=== PATIENT | male | born 1975 | race African-American/Black ===

== ENCOUNTER 2016-11-25 11:17 | Emergency (ER) | payer OTHER ==
--- NOTE | ~2016-11-25 | CR173 ---
[facility] A Service of [facility] & [facility] RADIOLOGY TEXT RESULTS PATIENT: TANI OHARA LOCATION: SED : 73 UNIT #: [id number] AGE: [address]: Jerrica Shepard APRN SEX: M ORDER DR: [id number] [place] [id number] E MR#: [id number] Acc #: [id number] NAME: TANI OHARA : 1975 SEX: M STUDY DATE/TIME: 11/25/2016 11:37 UNIT: SED ROOM: STUDY DESCRIPTION: CR Knee 3 Views Rt Attending Physician: Jerrica Shepard A.P.R.N. Ordering Physician: Jerrica Shepard A.P.R.N. Primary Care Physician: No Primary Care Physician MEDICAL IMAGING REPORT This report is preliminary unless electronic signature is present. EXAM Right knee series, 11/25/16 HISTORY Pain from hit. Right knee pain for 1 week. Pain and minimal swelling. Hit on metal rail one week ago. FINDINGS AP, lateral and sunrise views of the left knee are presented. No traumatic fracture or malalignment. Mild narrowing lateral aspect of the patellofemoral joint space. Mild narrowing medial joint space compartment. No joint effusion. No soft tissue defect, subcutaneous air or radiodense foreign body. Dictated by... Roger Rivera M.D. THIS IS AN ELECTRONICALLY VERIFIED REPORT Roger Rivera M.D. at 11/29/2016 4:56 PM Miguel A TD: 11/25/2016 14:49 JOB #: [id number] MEDICAL IMAGING REPORT Page 1 of 1
[~2016-11-25 11:17] MED LIST: ASPIRIN EC81 M1 PO; DICLOFENAC PO; FLEXERIL10 MG PO
[2016-11-25] MEDS ORDERED: IBUPROFEN (11:31)
== END 2016-11-25 13:08 | disposition home or self-care (01) ==
LOC: SED 11:17
DX: S83.91XA Sprain of unspecified site of right knee, initial encounter (principal); X50.1XXA Overexertion from prolonged static or awkward postures, initial encounter; Y92.69 Other specified industrial and construction area as the place of occurrence of the external cause
CPT/HCPCS: 73562; 99283

== ENCOUNTER 2017-01-05 11:25 | Emergency (ER) | payer OTHER ==
--- NOTE | ~2017-01-05 | CR72 ---
[facility]. [facility] A Service of [facility] & [facility] RADIOLOGY TEXT RESULTS PATIENT: TANI OHARA LOCATION: SED : 73 UNIT #: [id number] AGE: [address]: Gerson Salas MD SEX: M ORDER DR: [id number] [place] [id number] E MR#: [id number] Acc #: [id number] NAME: TANI OHARA : 1975 SEX: M STUDY DATE/TIME: 01/05/2017 UNIT: SED ROOM: STUDY DESCRIPTION: CR Chest Single View Portable Attending Physician: Gerson Salas M.D. Ordering Physician: Gerson Salas M.D. Primary Care Physician: No Primary Care Physician MEDICAL IMAGING REPORT This report is preliminary unless electronic signature is present. EXAM Chest portable 01/05/2017 1154 hours HISTORY 41-year-old man complaining of anterior chest pain since last night. COMPARISON 03/12/2015 FINDINGS Portable upright chest demonstrates heart size within normal limits. Mediastinal, hilar, and aortic contours are normal. Lung volumes are improved from the prior study. The lungs are clear, and there are no effusions. IMPRESSION No acute cardiopulmonary findings. Dictated by... Kenia Porras M.D. THIS IS AN ELECTRONICALLY VERIFIED REPORT Kenia Porras M.D. at 01/05/2017 2:34 PM CHRISTINE/petros TD: 01/05/2017 13:57 JOB #: [id number] MEDICAL IMAGING REPORT Page 1 of 1
--- NOTE | ~2017-01-05 | EKG ---
PATIENT: TANI OHARA UNIT #: [id number] Ventricular Rate: 92 BPM Atrial Rate: 92 BPM P-R Interval: 132 ms QRS Duration: 92 ms Q-T Interval: 346 ms QTC Calculation(Bezet): 427 ms P Turner: 66 degrees Calculated R Turner: 16 degrees Calculated T Turner: 20 degrees Diagnosis Line: Normal sinus rhythm Diagnosis Line: Minimal voltage criteria for LVH, may be normal Diagnosis Line: variant Diagnosis Line: Borderline ECG Diagnosis Line: When compared with ECG of 12-MAR-2015 09:50, Diagnosis Line: No significant change was found Diagnosis Line: Confirmed by PEDRO PRESSLEY MD ([id number]) on Diagnosis Line: 01/06/2017 5:29:12 PM INTERPRETING MD: WENDIE CRUZ
[~2017-01-05 11:25] MED LIST changes: +IBUPROFEN
[2017-01-05] MEDS ORDERED: NORVASC PO (11:30)
[2017-01-05] MEDS ORDERED: HYDROCHLOROTHIA25 MG PO (11:30)
[2017-01-05 11:59] LABS: BASOPHIL% 0.5 % (0-2.5); EOSINOPHIL% 0.4 % (0.0-7.0); HEMOGLOBIN 14.1 gm/dL (13.0-16.0); LYMPHOCYTE# 1.7 X10e3 (1.0-3.5); LYMPHOCYTE% 26.8 % (17.0-45.0); MEAN CELL VOLUME 73.7 FL (83-96); MEAN CORPUSCULAR HEMOGLOBIN 23.7 PG (28-34); MEAN CORPUSCULAR HGB CONC 32.2 g/dL (30-36); MEAN PLATELET VOLUME 6.4 FL (6.5-11.5); MONOCYTE# 0.5 X10e3 (0-1.0); MONOCYTE% 8.6 % (3.0-12.0); NEUTROPHIL% 63.7 % (40-75); PLATELET COUNT 310 X10e3 (140-420); RED BLOOD COUNT 5.97 X10e (3.90-5.60); WHITE BLOOD COUNT 6.2 X10e3 (4.0-10.5)
[2017-01-05 12:00] LABS: DIFF IND NO
[2017-01-05 12:05] LABS: POC - CKMB 1.9 ng/mL (0.0-7.9); POC - TROPONIN <0.05 ng/mL (<=0.05)
[2017-01-05 12:09] LABS: ALBUMIN SERUM 4.8 g/dL (3.5-5.0); ALKALINE PHOSPHATASE 64 U/L (32-92); ALT (SGPT) 26 U/L (10-40); AST (SGOT) 19 U/L (10-42); BILIRUBIN,TOTAL 0.5 mg/dL (0.2-2.0); BLOOD UREA NITROGEN 14 mg/dL (9-23); BUN/CREATININE RATIO 12.72; CALCIUM SERUM 9.7 mg/dL (8.4-10.2); CARBON DIOXIDE 30 mmol/L (22-31); CHLORIDE 96 mmol/L (100-111); CREATININE SERUM 1.1 mg/dL (0.6-1.4); GLOM FILT RATE Estimated 95.5 mL/min (>60); GLUCOSE FASTING 94 mg/dL (70-110); POTASSIUM 3.3 mmol/L (3.5-5.1); PROTEIN TOTAL SERUM 8.3 g/dL (6.0-8.3); SODIUM 134 mmol/L (135-145)
[2017-01-05 12:11] LABS: BILIRUBIN, DIRECT <0.1 mg/dL (0.0-0.2); BILIRUBIN,INDIRECT 0.4 mg/dL (0.0-0.9)
== END 2017-01-05 12:57 | disposition home or self-care (01) ==
LOC: SED 11:25
PROVIDERS: Emergency Medicine
DX: R07.89 Other chest pain (principal); R59.0 Localized enlarged lymph nodes; Z79.899 Other long term (current) drug therapy
CPT/HCPCS: 36415; 71010; 80048; 80076; 82553; 84484; 85025; 93005; 99285